=== PATIENT | female | born 1955 | race Caucasian/White ===

== ENCOUNTER → 2017-02-03 | Outpatient (CLI) | payer BC ==
[~2017-02-03] MED LIST: ANASTROZOLE1 MG PO; ASCORBIC ACID500 MG PO; ASPIRIN PO; ASPIRIN81 M2 PO; C-10001000 M1 PO; CALCIUM + D 6001 TA1 PO; EPIPEN0.3 MG/0.1; HCTZ PO; OYSTER CALCIUM500 MG PO; PRAVASTATIN SOD20 MG PO; TYLENOL; VIT E PO; VITAMIN C1000 M2 PO; VITAMIN D50000 UNIT PO; VOLTAREN75 MG PO; ZOCOR PO
--- NOTE | ~2017-02-03 | MY26 ---
[facility] A Service of [facility] RADIOLOGY TEXT RESULTS PATIENT: SHARONDA FELIX LOCATION: [facility] : 51 UNIT #: [id number] AGE: [address]: Merced Miranda MD SEX: F ORDER DR: [id number] [facility] [address] [place], [place] [address] [id number] O MR#: [id number] Acc #: [id number] NAME: SHARONDA FELIX : 1955 SEX: F STUDY DATE/TIME: 02/03/2017 11:12 UNIT: [facility] ROOM: STUDY DESCRIPTION: [facility] DIAGNOSTIC W/ CAD BILAT Attending Physician: Merced Miranda M.D. Referring Physician: Jamari Simons Jr., M.D. Ordering Physician: Merced Miranda M.D. Primary Care Physician: Neel Hernadez M.D. MEDICAL IMAGING REPORT This report is preliminary unless electronic signature is present EXAM Bilateral digital diagnostic mammogram with CAD, 02/03/2017. HISTORY 61-year-old female with history of left breast cancer status post lumpectomy 2-3 years ago. No current complaints. Family history of breast cancer in aunt. COMPARISON Bilateral diagnostic mammogram 01/31/2016 and 01/22/2015. FINDINGS CC and MLO views were obtained of each breast and true ML views were obtained of the left breast. The study is performed, utilizing digital technique, and reviewed with an FDA-approved CAD device. Linear marker was placed over the upper outer left breast denoting a surgical scar. Architectural distortion and parenchymal thickening in the posterosuperior left breast, best depicted on the MLO view, consistent with history of lumpectomy, unchanged from prior. No new or suspicious nodules identified. Benign lipoma demonstrated within the central right breast, unchanged. No suspicious microcalcifications. IMPRESSION 1. Benign findings. Stable lumpectomy changes in the left breast. No findings suspicious for malignancy. Routine bilateral screening mammogram is recommended in 1 year. 2. Findings and recommendations were discussed with the patient today in the Radiology Department. Patients over the age of 40 are entered into a reminder system with target due date for the next mammogram. A result letter will also be sent to the patient. [facility] A Service of [facility] RADIOLOGY TEXT RESULTS PATIENT: SHARONDA FELIX LOCATION: [facility] : 51 UNIT #: [id number] AGE: [address]: Merced Miranda MD SEX: F ORDER DR: BIRADS: 2 Benign finding. Dictated by... Namita Rashid M.D. THIS IS AN ELECTRONICALLY VERIFIED REPORT Namita Rashid M.D. at 02/06/2017 8:33 AM REED/soha TD: 02/03/2017 19:01 JOB #: [id number] MEDICAL IMAGING REPORT Page 1 of 1 COPY
== END | disposition home or self-care (01) ==
LOC: CMAM 10:57
DX: Z08 Encounter for follow-up examination after completed treatment for malignant neoplasm (principal); Z85.3 Personal history of malignant neoplasm of breast; Z80.3 Family history of malignant neoplasm of breast; Z98.890 Other specified postprocedural states
CPT/HCPCS: G0204